=== PATIENT | female | born 1940 | race Caucasian/White ===

== ENCOUNTER 2018-07-27 06:32 | Observation (INO) | payer MEDICARE ==
[2018-07-24 10:17] LABS: BASOPHILS % 0.4 % (0.0-1.0); EOSINOPHILS # (AUTO) 0.1 (0.0-0.4); EOSINOPHILS % 0.6 % (0.0-6.0); HEMATOCRIT 38.7 % (34.2-44.1); HEMOGLOBIN 12.6 g/dL (12.0-16.0); LYMPHOCYTES # (AUTO) 2.7 (1.0-3.2); LYMPHOCYTES % 29.6 % (18.0-39.1); MEAN CORPUSCULAR HEMOGLOBIN 29.3 pg (28-32); MEAN CORPUSCULAR HGB CONC 32.6 g/dL (31-35); MONOCYTES # (AUTO) 0.5 (0.2-0.8); MONOCYTES % 5.1 % (4.4-11.3); NEUTROPHILS # (AUTO) 5.8 (2.1-6.9); PLATELET COUNT 241 x10e3/uL (140-360); RED CELL DISTRIBUTION WIDTH 13.4 % (11.7-14.4)
--- NOTE | 2018-07-24 10:30 | Diagnostic Imaging Report ---
EXAMINATION: CHEST 2 VIEWS INDICATION: Pre-admit. COMPARISON: None FINDINGS: TUBES and LINES: None. LUNGS: Lungs are moderately inflated. There is no evidence of pneumonia or pulmonary edema. PLEURA: No pleural effusion or pneumothorax. HEART AND MEDIASTINUM: The cardiomediastinal silhouette is unremarkable. There are atherosclerotic calcifications within the aorta. BONES AND SOFT TISSUES: No acute osseous abnormality. UPPER ABDOMEN: No free air under the diaphragm. IMPRESSION: No acute radiographic abnormality. Signed by: Dr. Marko Turner MD on 07/24/2018 10:27 AM
[~2018-07-27] VITALS: Ht 154.9 cm; Wt 58.5 kg
[~2018-07-27 06:32] MED LIST: HYDROCODONE-AP1 EA14 PO; MECLIZINE HCL12.5 MG PO; ROPIVACAINE 246.25 MG, EPINEPHRINE HCL 1:1000 1ML 0.5 MG, CLONIDINE HCL 0.08 MG, KETORO... INJ ONE; TRAZODONE HCL50 MG PO; ULTRAM 50MG50 MG PO; Z.0.MELOXICAM7.5 MG PO; ZOLOFT50 MG PO
[2018-07-27] MEDS ORDERED: SODIUM CHLORIDE 0.9% 500ML 500 ML ONE ×2 (06:43→07:59)
[2018-07-27] MEDS ORDERED: TRANEXAMIC ACID 1,000 MG/10 ML ML ONE (06:43)
[2018-07-27] MEDS ORDERED: VANCOMYCIN HCL 0 MG ONE (06:43)
[2018-07-27] MEDS ORDERED: BACITRACIN 50,000 UNIT VIAL ONE (06:43)
[2018-07-27] MEDS ORDERED: VANCOMYCIN HCL 1,000 MG ONE (06:44)
[2018-07-27] MEDS ORDERED: GABAPENTIN 300 MG CAP ONE (06:54)
[2018-07-27] MEDS ORDERED: DEXAMETHASONE SOD PHOS 10 MG/1 ML VIAL ONE (06:54)
[2018-07-27] MEDS ORDERED: CELECOXIB 200 MG CAP ONE (06:54)
--- OUTSIDE RECORDS SUMMARY | 2018-07-27 07:02 | XMS REPORT ---
[facility] Address Unknown Phone Unavailable Care Team Providers Care Sas Analyst Name Role Phone MICHELLE CASTREJON Unavailable Unavailable Problems This patient has no known problems. Allergies, Adverse Reactions, Alerts This patient has no known allergies or adverse reactions. Medications This patient has no known medications. Results Test Description Test Time Test Comments Text Results Atomic Results Result Comments CHEST 2 VIEWS 2018-07-24 10:23:00 [place] [address] Patient Name: YI MUELLER MR #: [id number] : 1940 Age/Sex: 78/F Req #: [id number] Adm Physician: Ordered by: MICHELLE CASTREJON MD Report #: [id number] Location: OR Room/Bed: Procedure: [id number] DX/CHEST 2 VIEWS Exam Date: 07/24/18 Exam Time: 0955 REPORT STATUS: Signed EXAMINATION: CHEST 2 VIEWS INDICATION: Pre-admit. COMPARISON: None FINDINGS: TUBES and LINES: None. LUNGS: Lungs are moderately inflated. There is no evidence of pneumonia or pulmonary edema. PLEURA: No pleural effusion or pneumothorax. HEART AND MEDIASTINUM: The cardiomediastinal silhouette is unremarkable. There are atherosclerotic calcifications within the aorta. BONES AND SOFT TISSUES: No acute osseous abnormality. UPPER ABDOMEN: No free air under the diaphragm. IMPRESSION: No acute radiographic abnormality. Signed by: Dr. Corina Bhakta MD on 07/24/2018 10:27 AM Dictated By: CORINA BHAKTA MD 1027 Transcribed By: BRADFORD on 07/24/18 1027 COPY TO: MICHELLE CASTREJON MD
[2018-07-27] MEDS ORDERED: CEFAZOLIN SOD 2 GM/D5W 50ML 50 ML IV ONE (07:16)
[2018-07-27] MEDS ORDERED: KETOROLAC TROMETHAMINE 30 MG/ML VIAL IV PRN (09:30)
[2018-07-27] MEDS ORDERED: ACETAMINOPHEN 650 MG SUPP PR PRN (09:30)
[2018-07-27] MEDS ORDERED: DOCUSATE SODIUM 100 MG CAP PO PRN (09:30)
[2018-07-27] MEDS ORDERED: HYDROCODONE/APAP 7.5MG-325MG 1 EA TAB PO PRN (09:30)
[2018-07-27] MEDS ORDERED: PROMETHAZINE HCL (IM) 25 MG/ML VIAL IM PRN (09:30)
[2018-07-27] MEDS ORDERED: ONDANSETRON HCL INJ 2MG/ML 2ML 2 MG/ML VIAL IV PRN (09:30)
[2018-07-27] MEDS ORDERED: DIPHENHYDRAMINE HCL INJ 50 MG/ML VIAL IM/IV PRN (09:30)
[2018-07-27] MEDS ORDERED: HYDROCODONE/APAP 5MG-325MG TAB PO PRN (09:30)
[2018-07-27] MEDS ORDERED: FENTANYL CITRATE/PF 100MCG/2 ML INJ ONE ×2 (09:53→17:08)
--- NOTE | 2018-07-27 10:35 | Operative Report ---
DATE OF PROCEDURE: 07/27/2018 SURGEON: Patrick Casanova MD COMPOSITE LAYUP WORKER: Romain Aggarwal PA-C. PREOPERATIVE DIAGNOSIS: Osteoarthritis of right knee. POSTOPERATIVE DIAGNOSIS: Osteoarthritis of right knee. PROCEDURE: Right total knee arthroplasty. INDICATIONS: The patient is a 78-year-old woman, who has advanced osteoarthritis in her right knee. She has failed conservative management and would like to proceed with a right total knee replacement. The risks and benefits of the procedure have been discussed. She states she understands and wishes to proceed. PROCEDURE IN DETAIL: The patient was brought to the operating room and placed under general anesthetic. She received prophylactic antibiotics, a regional block and tranexamic acid in the holding area. Her right lower extremity was prepped and draped in a sterile manner. A preoperative time-out was performed. The extremity was exsanguinated and a proximal tourniquet was inflated to 300 mmHg. An anterior approach with a medial parapatellar arthrotomy was performed. Clear synovial fluid was removed from the joint. Soft tissue releases were performed to bring the knee up into flexion with the patella everted. The anterior cruciate ligament was sacrificed. A [employer] knee system was used throughout the case. Marginal osteophytes and meniscal remnants were removed. An extramedullary cutting guide was used to resect the proximal tibia. The tibial baseplate was a size C. The central fin punch was drilled and impacted. Attention was directed towards the distal femur. An intramedullary cutting guide was used to resect the distal femur in 5 degrees of valgus. External rotation was referenced off the epicondylar axis, the posterior condyles, and Whitesides line. The femoral component was a size #5. The anterior and posterior cuts were made. A trial reduction was performed. I felt the knee was a bit tight. I went back and resected an additional 2 mm of tibia. The knee appeared to be much better balanced. The patella was then resurfaced with a 29 mm x 8 mm patellar button. The thickness was checked before and after and was around 21 mm. Patellar tracking was concentric. The trial implants were removed. A 100 mL premixed pericapsular KIMBERLI injection was placed into the surrounding soft tissue. The knee was thoroughly irrigated with a shower tip pulsatile lavage. All of the bone cuts have been irrigated with a spray mixture of polymyxin and vancomycin spray. The components were cemented into place using a single mix of Palacos cement preloaded with antibiotics. Care was taken to remove all extravasated cement. The wound was further irrigated while the cement cured. 500 mg of vancomycin powder was sprinkled into the joint prior to the closure of the arthrotomy. Interrupted #1 Ethibond was used to close the arthrotomy. The knee was put through flexion and extension to ensure a secure closure. The skin was closed with subcuticular Vicryl and sameer. A sterile bandage was applied. The patient was extubated and transported to the recovery room in stable condition. Blood loss was minimal. All needle and sponge counts were correct. Patrick Casanova MD DR/BEENA /[id number]
[2018-07-27 10:40] VITALS: BP 148/66
--- NOTE | 2018-07-27 10:50 | NUR ---
RECEIVED TO RM AAOX3 NO DISTRESS NOTED, DENIES PAIN AT THIS TIME, DSG TO R LEG C/D/I, IVF INFUSING TO R HAND 20G NO SS OF INFILTRATION NOTED, NO OTHER CO VOICED CALL LIGHT IN REACH WILL CONTINUE TO MONITOR
--- NOTE | 2018-07-27 11:34 | Diagnostic Imaging Report ---
Exam: Right knee 2 views History: Postoperative evaluation Comparison: None. Findings: No fracture. Total knee arthroplasty with cemented components. Surgical clips. Expected postsurgical change. Impression: Intact right total knee arthroplasty. Signed by: Dr. Tex Hanson M.D. on 07/27/2018 11:31 AM
[2018-07-27] MEDS: ACETAMINOPHEN 1000 MG/100 ML IV SCH ×2 (11:50→18:00)
[2018-07-27] MEDS: SODIUM CHLORIDE 0.9% 1000ML 1,000 ML IV SCH ×2 (11:50→22:12)
[2018-07-27 13:37] VITALS: BP 148/66
[2018-07-27] MEDS: CEFAZOLIN SOD 1 GM/NS 50ML 50 ML IV SCH ×2 (13:56→22:12)
[2018-07-27] MEDS ORDERED: LIDOCAINE HCL 2% LOCAL INJ 5 ML SDV VIAL INJ ONE (16:50)
[2018-07-27] MEDS ORDERED: EPHEDRINE SULFATE INJ 50 MG/10 ML SYR ONE (16:50)
[2018-07-27] MEDS ORDERED: SEVOFLURANE INHAL SOLN 250 ML PEN BTL ONE (16:50)
[2018-07-27] MEDS ORDERED: PROPOFOL IV EMULSION 10 MG/ML 20 ML VIAL ONE (16:50)
[2018-07-27] MEDS ORDERED: ONDANSETRON HCL INJ 2MG/ML 2ML 2 MG/ML VIAL ONE (16:50)
[2018-07-27] MEDS ORDERED: ACETAMINOPHEN 1000 MG/100 ML IV ONE (16:50)
[2018-07-27] MEDS ORDERED: DEXAMETHASONE SOD PHOS INJ 4 MG/ML VIAL ONE (16:50)
[2018-07-27] MEDS ORDERED: PHENYLEPHRINE HCL 1% 10 MG/ML VIAL ONE (16:50)
[2018-07-27] MEDS ORDERED: GLYCOPYRROLATE INJ 1MG/ 5 ML SYR ONE (16:50)
[2018-07-27] MEDS: CELECOXIB 200 MG CAP PO SCH (16:53)
[2018-07-27] MEDS: ASPIRIN 325 MG TAB PO SCH (16:53)
[2018-07-27] MEDS ORDERED: CELECOXIB 100 MG CAP PO SCH (17:00)
[2018-07-27] MEDS ORDERED: BUPIVACAINE HCL 0.5% INJ 30 ML VIAL INJ ONE (17:03)
[2018-07-27] MEDS ORDERED: EPINEPHRINE HCL 1:1000 1ML 1 MG/ML AMP ONE (17:03)
[2018-07-27] MEDS ORDERED: MIDAZOLAM HCL 2 MG/2 ML VIAL ONE (17:08)
[2018-07-27 17:31] VITALS: BP 116/60
--- NOTE | 2018-07-27 18:00 | NUR ---
CPM PLACE ON RIGHT KNEE PT TOLERATED WELL
--- NOTE | 2018-07-27 19:22 | NUR ---
Received bedside shift report from day shift RN. Patient is laying on the bed, not in distress. Call light within reach, bed set low, side rails up x2, and wheels lock.
--- NOTE | 2018-07-27 19:22 | NUR ---
BEDSIDE SHIFT REPORT GIVEN TO ONCOMING NIGHT RN, PT LEFT IN STABLE CONDITION, DENIES ANY NEEDS OR PAIN AT THIS TIME,
[2018-07-27 19:30] VITALS: BP 108/53
--- NOTE | 2018-07-27 19:37 | NUR ---
BSC placed next to the patient's bed for patient to use for voiding/BM since her right knee buckle during ambulation. The patient understood why the BSC is placed next to the bed.
--- NOTE | 2018-07-27 19:37 | NUR ---
BEDSIDE SHIFT REPORT GIVEN TO LEADERSHIP DEVELOPMENT CONSULTANT RN, PT LEFT IN STABLE CONDITION, DENIES ANY NEEDS OR PAIN AT THIS TIME.
[2018-07-27 20:00] VITALS: BP 108/53
[2018-07-27] MEDS ORDERED: ZOLPIDEM TARTRATE 5 MG TAB PO PRN (21:00)
[2018-07-28] VITALS: BP 104/50
[2018-07-28] MEDS: ACETAMINOPHEN 1000 MG/100 ML IV SCH ×2 (00:33→05:05)
[2018-07-28 04:00] VITALS: BP 92/50
[2018-07-28] MEDS: SODIUM CHLORIDE 0.9% 1000ML 1,000 ML IV SCH (05:05)
[2018-07-28 05:30] LABS: HEMATOCRIT 32.9 % (34.2-44.1); HEMOGLOBIN 10.8 g/dL (12.0-16.0)
[2018-07-28] MEDS: CEFAZOLIN SOD 1 GM/NS 50ML 50 ML IV SCH (05:51)
--- NOTE | 2018-07-28 08:15 | NUR ---
RCD PT AT BED PT IS ALERT AND ORIENTED PT RESTING ON BED NO SIGNS OF ANY DISTRESS NOTED IV PATENT BED LOW AND LOCKED CALL LIGHT IN REACH
[2018-07-28] MEDS ORDERED: TRAMADOL HCL 50 MG TAB PO PRN ×2 (08:45→09:00)
[2018-07-28 08:49] VITALS: BP 105/54
[2018-07-28 09:00] VITALS: BP 105/54
[2018-07-28] MEDS ORDERED: SERTRALINE HCL 50 MG TAB PO SCH (09:00)
[2018-07-28] MEDS: ASPIRIN 325 MG TAB PO SCH ×2 (09:00→15:51)
[2018-07-28] MEDS: CELECOXIB 200 MG CAP PO SCH ×2 (09:00→15:52)
[2018-07-28] MEDS ORDERED: ACETAMINOPHEN 1000 MG/100 ML IV PRN (09:30)
[2018-07-28] MEDS ORDERED: ONDANSETRON HCL 4 MG ORAL DISINTEGRATING TAB PO PRN (11:30)
[2018-07-28 13:24] VITALS: BP 148/66
[2018-07-28] MEDS ORDERED: ULTRAM 50MG50 MG PO (14:12)
--- NOTE | 2018-07-28 15:30 | NUR ---
discharge and post operative instructions given she said she understood
--- NOTE | 2018-07-28 16:04 | NUR ---
PT WENT HOME IN SAFE CONDITION WITH HER ON IN LAW
[2018-07-28] MEDS ORDERED: TRAZODONE HCL 50 MG TAB PO SCH (21:00)
== END 2018-07-28 16:07 | disposition home health service (06) ==
LOC: OR 06:32 → PACU V 09:25 → MED/SURG 10:42
PROVIDERS: ADMIT Specialist; ATTEND Specialist
DX: M17.11 Unilateral primary osteoarthritis, right knee (principal); Z01.810 Encounter for preprocedural cardiovascular examination; Z01.812 Encounter for preprocedural laboratory examination; Z01.811 Encounter for preprocedural respiratory examination; Z88.5 Allergy status to narcotic agent; F41.9 Anxiety disorder, unspecified; F32.9 Major depressive disorder, single episode, unspecified
CPT/HCPCS: 27447; 36415 ×2; 71046; 73560; 85014; 85018; 85025; 86850; 86900; 86920; 93005; 97110; 97116 ×2; 97162; 97530; C1713; G0378 ×2; J0131 ×2; J0171; J0690 ×3; J1100 ×2; J1885; J2001; J2250; J2370; J2405; J2704; J2795; J3370; J3490; J7030 ×2; J7040